=== PATIENT | male | born 1990 | race Caucasian/White ===

== ENCOUNTER 2017-10-19 17:27 | Emergency (ER) | payer MEDICAID ==
[2017-10-19 18:02] VITALS: BP 132/74
--- NOTE | 2017-10-19 18:13 | UC ---
Respiratory Complaint HPI - HPI Summary HPI Summary: 27M w/ PMH of downs and epilepsy presents with cough, vomiting and diarrhea for 4 days. No fever. o2 stats have not been higher than 92 for past couple days. He has history of vsd repair. He has been SOB. Cough has been dry and productive. He vomits because he coughs so much. He states he is hungry but is complaining of "butt pain" and has been having loose stool without blood. no sore throat or ear pain. - History of Current Complaint Chief Complaint: UCRespiratory Stated Complaint: VOMITING, FEVER Time Seen by Provider: 10/19/17 18:02 - Allergies/Home Medications Allergies/Adverse Reactions: Allergies Allergy/AdvReac Type Severity Reaction Status Date / Time Alcohol Allergy Unknown Verified 10/19/17 18:02 Reaction Details Oxcarbazepine Allergy Rash Verified 10/19/17 18:02 milk protein Allergy Unknown Uncoded 10/19/17 18:02 Reaction Details wool Allergy Unknown Uncoded 10/19/17 18:02 Reaction Details Home Medications: Home Medications levETIRAcetam TAB* [Keppra TAB*] 1,000 mg PO BID 10/19/17 [History Confirmed ] PMH/Surg Hx/FS Hx/Imm Hx Endocrine History: Other Other Endocrine History: no DM Neurological History: Seizures, Other Other Neurological History: down syndrome - Surgical History Surgical History: Yes Surgery Procedure, Year, and Place: Open heart surgery 1989 to repair Ventricular Septal Defect - Family History Known Family History: Positive: Unknown - Social History Alcohol Use: None Substance Use Type: None Smoking Status (MU): Never Smoked Tobacco Have You Smoked in the Last Year: No Review of Systems Constitutional: Negative Respiratory: Shortness Of Breath, Cough Gastrointestinal: Abdominal Pain, Vomiting, Diarrhea All Other Systems Reviewed And Are Negative: Yes Physical Exam Triage Information Reviewed: Yes Appearance: Well-Appearing Vital Signs: Initial Vital Signs Temp 97.8 F 10/19/17 17:58 Pulse 97 10/19/17 17:58 Resp 40 10/19/17 17:58 BP 132/74 10/19/17 17:58 Pulse Ox 92 10/19/17 17:58 Vital Signs Reviewed: Yes Eyes: Positive: Conjunctiva Clear ENT: Positive: Normal ENT inspection, Pharynx normal, TMs normal Respiratory: Positive: Normal breath sounds, No accessory muscle use, Rhonchi Abdomen Description: Positive: Nontender, Soft Bowel Sounds: Positive: Present Musculoskeletal Exam: Normal Neurological Exam: Normal Psychological Exam: Normal Skin Exam: Normal UC Diagnostic Evaluation - Laboratory O2 Sat by Pulse Oximetry: 92 Respiratory Course/Dx - Course Course Of Treatment: 27M w/ PMH of downs and epilepsy presents with cough, vomiting and diarrhea for 4 days. No fever. o2 stats have not been higher than 92 for past couple days. He has history of vsd repair. He has been SOB. Cough has been dry and productive. He vomits because he coughs so much. He states he is hungry but is complaining of "butt pain" and has been having loose stool without blood. no sore throat or ear pain. on exam lungs congestion heard. appears well. abdomen soft nontender. do to vitals will send to ED. caregiver will drive to ED as appears well but o2 stats only 92 here and resp rate 30. attempted to call [facility] and got no answer after 10 mins. - Differential Dx/Diagnosis Differential Diagnosis/HQI/PQRI: Bronchitis, CHF, Lower Resp Infection Provider Diagnoses: cough, vomiting Discharge - Discharge Plan Condition: Guarded Disposition: HOME Discharge Disposition Comment: to ED wes Patient Education Materials: Acute Cough (ED) Referrals: Bonifacio CANALES,Kemar Salmeron [Primary Care Provider] - Additional Instructions: It is advised that you go to the ED
== END 2017-10-19 18:22 ==
LOC: UCCORT 17:27
DX: R05 Cough (principal); R11.10 Vomiting, unspecified; R06.02 Shortness of breath; R19.7 Diarrhea, unspecified; R10.9 Unspecified abdominal pain; R56.9 Unspecified convulsions; Q90.9 Down syndrome, unspecified
CPT/HCPCS: 99212; G0463

== ENCOUNTER 2019-11-08 15:11 | Emergency (ER) | payer MEDICARE, MEDICAID ==
--- OUTSIDE RECORDS SUMMARY | 2019-11-08 15:17 | XMS REPORT | Continuity of Care Document ---
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 Profound intellectual disability Jeremias Murray MD Onset: 02/19/2011 Attention deficit hyperactivity disorder Kemar Valdovinos MD Onset: 2010 Social History Type Date Description Comments Sex Unknown ETOH Use Never used alcohol Tobacco Use Start: Unknown Patient has never smoked Smoking Status Reviewed: 01/10/19 Patient has never smoked Exercise Type/Frequency Does not exercise Allergies, Adverse Reactions, Alerts Active Allergies Reaction Severity Comments Date Lamictal Skin Reaction 05/08/2016 Inactive Allergies NKDA 06/23/2002 Medications Active Medications SIG Qnty Indications Ordering Date Provider Cephalexin 1 tab twice a day 14tabs L73.9 Jeremias Murray, 10/14/2019 500mg Tablets x 7 days Mupirocin apply to affected 22gm L73.9 Jeremias Murray, 10/14/2019 2% Ointment area three times a MD day Antifungal as directed 130gm Kemar Valdovinos 01/10/2019 1% Aerosol MD Chrissie Hydrocortisone L30.9 Kemar Valdovinos 09/22/2018 1% Cream MD Chrissie Terbinafine HCL Apply 1 30gm L30.9 Kemar Valdovinos 09/22/2018 1% Cream application MD Chrissie topically to affected area daily for 14 days Montelukast Sodium Take 1 Tablet By 30tabs J30.9 Kemar Valdovinos 05/24/2018 10mg Mouth Every Night MD Chrissie Tablets AT Bedtime Loratadine 1 by mouth every 30tabs Kemar Valdovinos 05/11/2018 10mg Tablets day AT Night MD Chrissie Acidophilus one po qd 30Kemar Coppola 10/26/2017 High-Potency MD Chrissie Capsules Pantoprazole Sodium Take 1 Tablet By 30taKemar Reddy 10/26/2017 40mg Mouth Every Day MD Chrissie Tablets Vitamin D3 one a day 90Kemar Coppola 01/14/2016 2000Marielle Dickens MD Capsules Colace 1 by mouth twice a Unknown 100mg Capsules day Keppra 1 by mouth twice a Unknown 750mg Tablets day Sertraline HCL 1 by mouth every Unknown 50mg day Tablets Guaifenesin Unknown 100mg/5ML Liquid Levetiracetam 3 per day per Unknown 1000mg huynh Tablets Medications Administered in Office Medication SIG Qnty Indications Ordering Provider Date Kemar Viramontes MD 03/05/2009 Injection Rocephin (Ceftriaxone) 1 Gram Rodriguez Storm RNNP 10/28/2006 Injection Rocephin (Ceftriaxone) Inj Rodriguez Storm RNNP 10/28/2006 250 MG Injection Manoloephin (Ceftriaxone) Inj Rodriguez Storm RNNP 10/27/2006 250 MG Injection Kemar Viramontes MD 04/04/2003 Injection Immunizations CPT Code Status Date Vaccine Lot # [id number] Given 09/14/2018 Influenza Vac, Quadrivalent, Split, 0.5mL Dosage, Im Use 34931 Given 01/16/2017 Tdap (Adacel) Ages 7 And Above Only [id number] 81977 Given 10/03/2016 Influenza Vac, Quadrivalent, Split, 0.5mL Dosage, [id number] Im Use [id number] Given 09/08/2012 Fluzone Trivalent Immunization [id number] Given 12/16/2006 Afluria Or Fluvirin Flu Vac Intramuscular 38845 Given 12/16/2006 Afluria Or Fluvirin Flu Vac Intramuscular [id number] 35544 Given 08/06/2004 Immunization Td 7 Yrs Or Older 79237 Given 06/14/2001 Hepatitis B Vac Ped/Adolescent 3 Dose Schedule 56891 Given 07/21/2000 Hepatitis B Vac Ped/Adolescent 3 Dose Schedule 74366 Given 05/01/1999 Hepatitis B Vac Ped/Adolescent 3 Dose Schedule 21369 Given 07/21/1997 Varicella (Chicken Pox) Immunization 75439 Given 03/17/1995 DTaP Immunization 6 Yrs & Younger 10815 Given 03/17/1995 MMR Virus Immunization 86337 Given 03/17/1995 Oral Poliovirus Immunization 55869 Given 03/16/1992 DTP & Hib Immunization 80412 Given 03/16/1992 Oral Poliovirus Immunization 29135 Given 10/17/1991 MMR Virus Immunization 14921 Given 04/13/1991 DTP & Hib Immunization 95409 Given 02/14/1991 DTP & Hib Immunization 97329 Given 02/14/1991 Oral Poliovirus Immunization 34294 Given 1990 DTP & Hib Immunization 93897 Given 1990 Oral Poliovirus Immunization 53576 Ordered 09/14/2018 Influenza Vac, Quadrivalent, Split, 0.5mL Dosage, Im Use Vital Signs Date Vital Result Comment 10/14/2019 4:11pm Body Temperature 98.4 F Weight 180.00 lb with shoes Heart Rate 77 /min BP Systolic 120 mmHg BP Diastolic 86 mmHg Respiratory Rate 16 /min O2 % BldC Oximetry 97 % 07/28/2019 12:46pm Body Temperature 97.1 F Weight 188.38 lb Heart Rate 80 /min BP Systolic 116 mmHg BP Diastolic 78 mmHg Respiratory Rate 20 /min Results Test Acquired Facility Test Result H/L Range Note Date Laboratory 05/06/2019 [facility] Levetiracetam 26.4 ug/ mL 10.0-40. 1, 2 test finding (315)- - (Keppra) 0 CBC 05/06/2019 [facility] White Blood Count 10.6 K/uL High 3.4-10.5 (315)- - Red Blood Count 5.68 M/uL Normal 4.20-5.80 Hemoglobin 18.6 gm/dL High 12.8-17.0 Hematocrit 50.7 % High 38.0-48.0 Mean Cell Volume 89.3 fl Normal 80.0-96.0 Mean Corpuscular HGB 32.7 pg Normal 27.0-33.0 Mean Corpuscular HGB Conc 36.7 g/dL High 31.7-36.0 Platelet Count 355 K/uL Normal 155-360 Red Cell Distri Width SD 42.9 fl Normal 36-51 Red Cell Distri Width %CV 13.2 % Normal 11.6-15.8 Mean Platelet Volume 9.2 fl Normal 6.6-10.6 NRBC % 0.0 /100WBC < 10/ 100 WBC Basic Metabolic Panel 05/06/2019 [facility] Glucose 126 mg/dL High 74-106 (315)- - BUN 10 mg/dL Normal 7-18 Creatinine 1.0 mg/dL Normal 0.6-1.3 Glom Filtration Rate, Estimate >60 mL/min >60 If >60 mL/min >60 3 BUN/Creat 10.0 ratio Sodium 139 mmol/L Normal 136-145 Potassium 4.1 mmol/L Normal 3.5-5.1 Chloride 106 mmol/L Normal 98-107 Carbon Dioxide 21 mmol/L Normal 21-32 Anion Gap 12 mEq/L Normal 8-16 Calcium 9.2 mg/dL Normal 8.5-10.1 1 SEIZURE 2 This test was developed and its performance characteristics determined by [facility]. It has not been cleared or approved by the Food and Drug Administration. Performed at: [address] [id number] [place]: Ozzy Estrada MD, Phone: [phone] Note: Persistent reduction for 3 months or more in an eGFR <60 mL/min/1.73 m2 defines CKD. Patients with eGFR values >/=60 mL/min/1.73 m2 may also have CKD if evidence of persistent proteinuria is present. The original MDRD equation for estimated GFR is not valid for patients less than 18 years of age. Additional information may be found at www.[facility].org. 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 S83.101D Unspecified subluxation of RIGHT knee, subsequent encounter S83.102D Unspecified subluxation of LEFT knee, subsequent encounter Z00.00 Encntr for general adult medical exam w/o abnormal findings F71 Moderate intellectual disabilities F63.9 Impulse disorder, unspecified Q90.9 Down syndrome, unspecified 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 L02.222 Furuncle of back [any part, except buttock] Assessments Date Code Description Provider 10/14/2019 L73.9 Follicular disorder, unspecified Cynthia Gomez PA 07/28/2019 R56.9 Unspecified convulsions Kemar Valdovinos MD 07/28/2019 R26.81 Unsteadiness on feet Kemar Valdovinos MD 07/28/2019 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 Kemar Valdovinos MD septa 07/28/2019 S83.101D Unspecified subluxation of RIGHT knee, Kemar Valdovinos MD subsequent encounter 07/28/2019 S83.102D Unspecified subluxation of LEFT knee, Kemar Valdovinos MD subsequent encounter 07/28/2019 Z00.00 Encounter for general adult medical Kemar Valdovinos MD examination without abnormal findings 07/28/2019 F71 Moderate intellectual disabilities Kemar Valdovinos MD 07/28/2019 F63.9 Impulse disorder, unspecified Kemar Valdovinos MD 07/28/2019 Q90.9 Down syndrome, unspecified Kemar Valdovinos MD 07/28/2019 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 Kemar Valdovinos MD 07/28/2019 L02.222 Furuncle of back [any part, except buttock] Kemar Valdovinos MD 07/19/2019 R26.81 Unsteadiness on feet Kemar Valdovinos MD 07/19/2019 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 folliculitiswill treat with abx and can use antibacterial ointment as wellcall office with any worsening sx Functional Status Description No Information Available Mental Status Description No Information Available Referrals Description No Information Available
--- OUTSIDE RECORDS SUMMARY | 2019-11-08 15:17 | XMS REPORT | Continuity of Care Document ---
:1990 External Reference #:[id number] Author Name Deya Bailon DO (transmitted by agent of provider Adalgisa Cole) Address [address] [place] [id number] Care Team Providers Name Role Phone Kemar Valdovinos MD - Family Medicine Care Team Information Eye Physician [phone] Problems Active Problems Provider Date Vitamin B deficiency Deya Bailon DO Onset: 11/04/2019 Other seizures Deya Bailon DO Onset: 06/07/2019 Secondary polycythemia Deya Bailon DO Onset: 06/07/2019 Social History Type Date Description Comments Sex Unknown Tobacco Use Start: Unknown Never Smoked Cigarettes ETOH Use Never used alcohol Tobacco Use Start: Unknown Patient denies history of smoking Smoking Status Reviewed: 06/07/19 Patient denies history of smoking Allergies, Adverse Reactions, Alerts Active Allergies Reaction Severity Comments Date Lanolin 06/07/2019 Wool 06/07/2019 Iron Succinyl Milk Protein Complex 06/07/2019 Oxcarbazepine 06/07/2019 Medications Active Medications SIG Qnty Indications Ordering Date Provider Vitamin D 1 by mouth every day Unknown 2000Unit Capsules Triamcinolone apply to affected Unknown Acetonide area twice a day for 0.1% Cream 7 days Triple Antibiotic apply to affected Unknown area 3x daily as 3.5-400-5000 Ointment needed Sertraline HCL 1 by mouth every day Unknown 50mg Tablets Petroleum Jelly Lip apply twice daily to Unknown Treatment libps Ointment Pantoprazole Sodium 1 by mouth every day Unknown 40mg Tablets Montelukast Sodium 1 by mouth every day Unknown 10mg Tablets Lotrimin AF Powder apply three times a Unknown 2% day for 2 weeks to Aerosol groin and buttocks Loratadine 1 by mouth every day Unknown 10mg Capsules Ra Liquid Antacid Unknown [phone] Suspension Levetiracetam 2x daily Unknown 500mg Tablets Hydrocortisone apply to affected Unknown 1% Cream area twice daily as needed. Guaifenesin 10 milliliters every Unknown 100mg/5ML 4 hours as needed Liquid for cough Fluocinonide apply to affected Unknown 0.05% area twice a day Ointment Fluconazole 1 by mouth once Unknown 200mg Tablets Docusate Sodium take 1 capsule by Unknown 100mg mouth twice daily as Capsules needed for constipation Acetaminophen 3 tablets by mouth Unknown three times daily. 325mg/10.15ML Solution as needed History Medications Ergocalciferol 1 cap by mouth 4caps Deya Bailon, 06/27/2019 - [id number] every week DO 11/04/2019 Capsules Medications Administered in Office Medication SIG Qnty Indications Ordering Provider Date Vitamin B12 Injection 1000 Deya Bailon, DO 06/27/2019 mcg/Ml Injection Immunizations Description No Information Available Vital Signs Date Vital Result Comment 11/04/2019 3:19pm BP Systolic 114 mmHg BP Diastolic 75 mmHg Body Temperature 98.2 F Heart Rate 76 /min Respiratory Rate 20 /min Pain Level 0 O2 % BldC Oximetry 96 % 06/27/2019 8:58am BP Systolic 109 mmHg BP Diastolic 71 mmHg Body Temperature 98.4 F Heart Rate 94 /min Respiratory Rate 20 /min Weight 180.00 lb Pain Level 0 O2 % BldC Oximetry 94 % Ra Results Test Acquired Date Facility Test Result H/L Range Note CBC 10/20/2019 [facility] White Blood 4.6 K/uL Normal 3.4-10.5 1 W/Automated [address] [place] [address] [phone] Red Blood Count 5.39 M/uL Normal 4.20-5.80 Hemoglobin 17.0 gm/dL Normal 12.8-17.0 Hematocrit 50.1 % High 38.0-48.0 Mean Cell Volume 92.9 fl Normal 80.0-96.0 Mean Corpuscular HGB 31.5 pg Normal 27.0-33.0 Mean Corpuscular HGB Conc 33.9 g/dL Normal 31.7-36.0 Platelet Count 355 K/uL Normal 155-360 Red Cell Distri Width SD 45.7 fl Normal 36-51 Red Cell Distri Width %CV 13.4 % Normal 11.6-15.8 Mean Platelet Volume 9.8 fl Normal 6.6-10.6 Neut% 45.1 % Normal 33.0-73.0 Lymph % 43.1 % High 20.0-42.0 Ellis % 8.1 % Normal 0.0-10.0 Eo% 2.0 % Normal 0.0-6.6 Bas% 1.5 % High 0.0-1.1 Immature Grans 0.2 % Normal 0.0-5.0 NRBC % 0.0 /100WBC < 10/ 100 WBC Neut# 2.05 K/uL Normal 1.8-7.0 Lymph # 1.96 K/uL Normal 1.0-4.0 Ellis # 0.37 K/uL Normal 0.0-0.8 Eos # 0.09 K/uL Normal 0.0-0.5 Baso # 0.07 K/uL Normal 0.0-0.1 Immature Grans Absolute 0.01 K/uL NRBC # 0.00 K/uL Comprehensive 10/20/2019 [facility] Glucose 78 mg/dL Normal 74-106 Metabolic Panel [address] [place] [address] [phone] BUN 9 mg/dL Normal 7-18 Creatinine 1.0 mg/dL Normal 0.6-1.3 Glom Filtration Rate, Estimate >60 mL/min >60 If >60 mL/min >60 2 BUN/Creat 9.0 ratio Sodium 140 mmol/L Normal 136-145 Potassium 3.4 mmol/L Low 3.5-5.1 Chloride 107 mmol/L Normal 98-107 Carbon Dioxide 28 mmol/L Normal 21-32 Anion Gap 5 mEq/L Low 8-16 Calcium 8.4 mg/dL Low 8.5-10.1 Total Protein 7.5 g/dL Normal 6.4-8.2 Albumin 3.4 g/dL Normal 3.4-5.0 Globulin 4.1 g/dL Normal 1.9-4.3 Alb/Glob 0.8 ratio Bilirubin,Total 0.6 mg/dL Normal 0.2-1.0 Sgot/Ast 19 U/L Normal 15-37 SGPT/Alt 35 U/L Normal 12-78 Alkaline Phosphatase 120 U/L High 45-117 Iron-Tibc-%Sat 10/20/2019 [facility] Serum Iron 59 g/dL Low 65-175 [address] [place] [address] [phone] Total Iron Binding Capacity 301 g/dL Normal 250-450 Transferrin %Saturation 20 % Normal 12-57 Laboratory test 10/20/2019 [facility] Ferritin 145 ng/mL Normal 26-388 finding [address] [place], [place] [id number] [phone] Vitamin B12 And 10/20/2019 [facility] Vitamin B12 542 pg/mL Normal 193-986 Folate [address] [place], [place] [id number] [phone] Folic Acid > 20.0 ng/mL High 3.1-17.5 Laboratory 10/20/2019 [facility] Sedimentation 10 mm/hr Normal 0-15 test finding [address] Rate,Manual [place], [place] [id number] [phone] CBC 06/07/2019 [facility] White Blood Count 6.7 K/uL Normal 3.4-10. 3 W/Automated [address] Diff [place], [place] [id number] [phone] Red Blood Count 5.18 M/uL Normal 4.20-5.80 Hemoglobin 16.8 gm/dL Normal 12.8-17.0 Hematocrit 47.6 % Normal 38.0-48.0 Mean Cell Volume 91.9 fl Normal 80.0-96.0 Mean Corpuscular HGB 32.4 pg Normal 27.0-33.0 Mean Corpuscular HGB Conc 35.3 g/dL Normal 31.7-36.0 Platelet Count 321 K/uL Normal 155-360 Red Cell Distri Width SD 45.7 fl Normal 36-51 Red Cell Distri Width %CV 13.4 % Normal 11.6-15.8 Mean Platelet Volume 9.5 fl Normal 6.6-10.6 Neut% 60.4 % Normal 33.0-73.0 Lymph % 28.8 % Normal 20.0-42.0 Ellis % 8.2 % Normal 0.0-10.0 Eo% 1.2 % Normal 0.0-6.6 Bas% 1.0 % Normal 0.0-1.1 Immature Grans 0.4 % Normal 0.0-5.0 NRBC % 0.0 /100WBC < 10/ 100 WBC Neut# 4.04 K/uL Normal 1.8-7.0 Lymph # 1.93 K/uL Normal 1.0-4.0 Ellis # 0.55 K/uL Normal 0.0-0.8 Eos # 0.08 K/uL Normal 0.0-0.5 Baso # 0.07 K/uL Normal 0.0-0.1 Immature Grans Absolute 0.03 K/uL NRBC # 0.00 K/uL Comprehensive 06/07/2019 [facility] Glucose 95 mg/dL Normal 74-106 Metabolic Panel [address] [address] [phone] BUN 10 mg/dL Normal 7-18 Creatinine 0.9 mg/dL Normal 0.6-1.3 Glom Filtration Rate, Estimate >60 mL/min >60 If >60 mL/min >60 4 BUN/Creat 11.1 ratio Sodium 139 mmol/L Normal 136-145 Potassium 3.6 mmol/L Normal 3.5-5.1 Chloride 103 mmol/L Normal 98-107 Carbon Dioxide 27 mmol/L Normal 21-32 Anion Gap 9 mEq/L Normal 8-16 Calcium 8.5 mg/dL Normal 8.5-10.1 Total Protein 7.8 g/dL Normal 6.4-8.2 Albumin 3.4 g/dL Normal 3.4-5.0 Globulin 4.4 g/dL High 1.9-4.3 Alb/Glob 0.8 ratio Bilirubin,Total 0.7 mg/dL Normal 0.2-1.0 Sgot/Ast 27 U/L Normal 15-37 SGPT/Alt 40 U/L Normal 12-78 Alkaline Phosphatase 130 U/L High 45-117 Laboratory test 06/07/2019 [facility] Hold Slide for Slide on file 5 finding [address]E Bailon in <SEE NOTE> [place] [address] [phone] LDH 188 U/L Normal 87-241 Sedimentation Rate 18 mm/hr Normal 2-40 6 Erythropoietin (Epo), Serum 19.9 mIU/mL High 2.6-18.5 7 Iron-Tibc-%Sat 06/07/2019 [facility] Serum Iron 48 g/dL Low 65-175 [address] [place] [address] [phone] Total Iron Binding Capacity 322 g/dL Normal 250-450 Transferrin %Saturation 15 % Normal 12-57 Laboratory test 06/07/2019 [facility] Ferritin 189 ng/mL Normal 26-388 finding [address] [place] [address] [phone] Vitamin B12 And 06/07/2019 [facility] Vitamin B12 419 pg/mL Normal 193-986 Folate [address] [place] [address] [phone] Folic Acid > 20.0 ng/mL High 3.1-17.5 Laboratory 06/07/2019 [facility] Vitamin 20.7 Low 30.0-100.0 8 test finding [address] D,25-Hydroxy ng/[place] [address] [phone] 1 D75.1,Q90.9 2 Note: Persistent reduction for 3 months or more in an eGFR <60 mL/min/1.73 m2 defines CKD. Patients with eGFR values >/=60 mL/min/1.73 m2 may also have CKD if evidence of persistent proteinuria is present. The original MDRD equation for estimated GFR is not valid for patients less than 18 years of age. Additional information may be found at www.kdoqi.org. 3 D75.1 Q90.9 4 Note: Persistent reduction for 3 months or more in an eGFR <60 mL/min/1.73 m2 defines CKD. Patients with eGFR values >/=60 mL/min/1.73 m2 may also have CKD if evidence of persistent proteinuria is present. The original MDRD equation for estimated GFR is not valid for patients less than 18 years of age. Additional information may be found at www.kdoqi.org. 5 Slide on file in lab 6 This result was obtained with an ESR method that is not based on the standard Westergren Method. When comparing results obtained from the traditional Westergren ESR and this method it is important to refer to the reference range for each method. Method: Capillary Photometry 7 Tapjoy DxI 800 Immunoassay System Values obtained with different assay methods or kits cannot be used interchangeably. Results cannot be interpreted as absolute evidence of the presence or absence of malignant disease. Performed at: [facility] [id number] Pharmacy Specialist: Shante Tyson MD, Phone: [phone] Vitamin D deficiency has been defined by the [place] of [employer] and an Endocrine Society practice guideline as a level of serum 25-OH vitamin D less than 20 ng/mL (1,2). The Endocrine Society went on to further define vitamin D insufficiency as a level between 21 and 29 ng/mL (2). 1. IOM ([place] of [employer]). 2010. Dietary reference intakes for calcium and D. [place]: The National Academies Press. 2. Henri MF, Leigh NC, Ryan RODRÍGUEZ, et al. Evaluation, treatment, and prevention of vitamin D deficiency: an Endocrine Society clinical practice guideline. JCEM. 2010; 96(7):1911-30. Performed at: - [facility] [id number] Pharmacy Specialist: Shante Tyson MD, Phone: [phone] Procedures Date Code Description Status 06/27/2019 83004 Theraputic Or Diagnostic Injection Completed Medical Devices Description No Information Available Encounters Type Date Location Provider Dx Diagnosis Office Visit 06/27/2019 Oncology Office Deya Bailon, D75.1 Secondary 8:45a DO polycythemia Office Visit 06/07/2019 Oncology Office Deya Bailon, D75.1 Secondary 1:00p DO polycythemia G40.89 Other seizures Assessments Date Code Description Provider 11/04/2019 D75.1 Secondary polycythemia Deya Bailon, DO 11/04/2019 E53.9 Vitamin B deficiency Deya Bialon, DO 10/20/2019 D75.1 Secondary polycythemia Deya Bailon, DO 10/20/2019 D75.1 Secondary polycythemia Oncology Nurse 10/20/2019 Q90.9 Down syndrome, unspecified Deya Bailon, DO 10/20/2019 Q90.9 Down syndrome, unspecified Oncology Nurse 08/08/2019 D75.1 Secondary polycythemia Oncology Nurse 08/08/2019 Q90.9 Down syndrome, unspecified Oncology Nurse 06/27/2019 D75.1 Secondary polycythemia Deya Bailon DO 06/07/2019 D75.1 Secondary polycythemia Deya Bailon, 06/07/2019 G40.89 Other seizures Deya Bailon DO Plan of Treatment Future Appointment(s):11/10/2019 1:30 pm - Infusion Chair [facility] at [facility] Functional Status Description No Information Available Mental Status Description No Information Available Referrals Description No Information Available
[2019-11-08 15:36] VITALS: BP 118/83
--- NOTE | 2019-11-08 15:44 | UC ---
Ear Complaint HPI - HPI Summary HPI Summary: Patient is a 29yo male presenting from snf with his resident staff member for c/o L ear pain that began this morning. Staff member provided history , as patient has down syndrome and is unable to answer questions. Staff denies any drainage from the ear. Denies any reported URI symptoms, including sore throat and cough. Denies fever and chills. Denies decreased activity level and appetite. Denies R ear complaints. - History of Current Complaint Chief Complaint: UCEar Stated Complaint: LT EAR COMPLAINT Hx Obtained From: Family/Blacksmith Assistant - staff member from snf Onset/Duration: Sudden Onset Pain Intensity: 0 Associated Signs/Symptoms: Negative: Discharge, URI Symptoms - Allergies/Home Medications Allergies/Adverse Reactions: Allergies Allergy/AdvReac Type Severity Reaction Status Date / Time alcohol Allergy Unknown Verified 11/08/19 15:36 Reaction Details oxcarbazepine Allergy Rash Verified 11/08/19 15:36 milk protein Allergy Unknown Uncoded 11/08/19 15:36 Reaction Details wool Allergy Unknown Uncoded 11/08/19 15:36 Reaction Details Home Medications: Home Medications Fluconazole [Fluconazole 200 mg tab] 200 mg PO WEEKLY 11/08/19 [History Confirmed 11/08/19] Loratadine [Claritin] 10 mg PO DAILY 11/08/19 [History Confirmed 11/08/19] Montelukast Sodium TAB* [Singulair TAB*] 10 mg PO DAILY 11/08/19 [History Confirmed 11/08/19] Pantoprazole TAB * [Protonix TAB*] 40 mg PO DAILY 11/08/19 [History Confirmed ] PMH/Surg Hx/FS Hx/Imm Hx - Surgical History Surgical History: Yes Surgery Procedure, Year, and Place: Open heart surgery 1989 to repair Ventricular Septal Defect - Family History Known Family History: Positive: Unknown - Social History Alcohol Use: None Substance Use Type: None Smoking Status (MU): Never Smoked Tobacco Have You Smoked in the Last Year: No Review of Systems All Other Systems Reviewed And Are Negative: No Constitutional: Positive: Negative. Negative: Fever Skin: Positive: Negative Eyes: Positive: Negative. Negative: Drainage, Eye Redness ENT: Positive: Ear Ache - Left Respiratory: Positive: Negative Cardiovascular: Positive: Negative Gastrointestinal: Positive: Negative Neurological: Positive: Negative. Negative: Headache Physical Exam Triage Information Reviewed: Yes Appearance: Well-Appearing, No Pain Distress, Well-Nourished Vital Signs: Initial Vital Signs Temp 97.7 F 11/08/19 15:24 Pulse 97 11/08/19 15:24 Resp 18 11/08/19 15:24 BP 118/83 11/08/19 15:24 Pulse Ox 99 11/08/19 15:24 Vital Signs Reviewed: Yes Eyes: Positive: Conjunctiva Clear ENT: Positive: Hearing grossly normal, Pharynx normal, TMs normal - b/l cerumen impaction. cerumen removal revealed normal intact TMs b/l with no signs of infection., Other - cerumen removal reveal edema and erythema of left EAC. minimal bleeding noted removal of cerumen. Negative: Nasal congestion, Nasal drainage, TM bulging, TM dull, TM red Neck exam: Normal Neck: Positive: Supple, Nontender, No Lymphadenopathy Respiratory Exam: Normal Respiratory: Positive: Lungs clear, Normal breath sounds, No respiratory distress Cardiovascular Exam: Normal Cardiovascular: Positive: RRR Neurological: Positive: Alert Psychological: Positive: Decreased Age Appropriate Behavior Ear Complaint Course/Dx - Course Course Of Treatment: B/l cerumen impaction. Patient received b/l cerumen irrigation and tolerated well. Removal revealed L otitis externa. I treated with ciprofloxacin drops and instructed to follow up with pcp if symptoms persist. Patient's staff voiced understanding and agreed with treatment plan. - Differential Dx/Diagnosis Provider Diagnosis: Bilateral impacted cerumen, Otitis externa of left ear Discharge ED - Sign-Out/Discharge Documenting (check all that apply): Patient Departure All imaging exams completed and their final reports reviewed: No Studies - Discharge Plan Condition: Stable Disposition: HOME Prescriptions: Ciprofloxacin HCl [Ciprofloxacin 0.2% EAR DROPS] 2 drop LEFT EAR BID 7 Days #1 bottle Patient Education Materials: Otitis Externa (ED), Cerumen Impaction (ED) Referrals: Bonifacio CANALES,Kemar Salmeron [Primary Care Provider] - If Needed Additional Instructions: Place 2 drops in the left ear twice daily for 7 days for treatment of outer ear infection. Do not place anything in the ears, including Qtips. Follow up with PCP if symptoms worsen or do not resolve within 7 days. - Billing Disposition and Condition Condition: STABLE Disposition: Home
== END 2019-11-08 16:33 | disposition home or self-care (01) ==
LOC: UCCORT 15:11
DX: H60.92 Unspecified otitis externa, left ear (principal); H61.23 Impacted cerumen, bilateral; Q90.9 Down syndrome, unspecified; Z91.011 Allergy to milk products; Z88.8 Allergy status to other drugs, medicaments and biological substances; Z91.09 Other allergy status, other than to drugs and biological substances
CPT/HCPCS: 99213; G0463